=== PATIENT | female | born 1980 | race Caucasian/White ===

== ENCOUNTER → 2018-05-03 | Emergency (ER) | payer OTHER ==
[~2018-05-03] VITALS: Ht 170.2 cm; Wt 59.0 kg
--- NOTE | 2018-05-03 11:22 | NUR ---
PATRICIA AT BS.
[2018-05-03 12:38] VITALS: BP 120/82
== END | disposition home or self-care (01) ==
LOC: ER 11:01
DX: S92.001A Unspecified fracture of right calcaneus, initial encounter for closed fracture (principal); S92.412A Displaced fracture of proximal phalanx of left great toe, initial encounter for closed fracture; W01.0XXA Fall on same level from slipping, tripping and stumbling without subsequent striking against object, initial encounter; Y93.01 Activity, walking, marching and hiking; Y92.89 Other specified places as the place of occurrence of the external cause; Y99.8 Other external cause status
CPT/HCPCS: 29515; 73630; 73650; 99284; A4606; Z7610